=== PATIENT | female | born 1945 | race Caucasian/White ===

== ENCOUNTER → 2020-07-18 08:10 | Outpatient (BNVA) | payer OTHER, SELFPAY | PROVIDERS: PCP Internal Medicine; Referring Provider Internal Medicine; Visit Provider Obstetrics & Gynecology | DX: Z76.89 Persons encountering health services in other specified circumstances (principal) ==

== ENCOUNTER 2020-08-31 10:55 | Outpatient (REF) | payer OTHER, SELFPAY ==
[2020-08-31 13:24] LABS: Alanine Aminotransferase 21 U/L (0-31); Albumin Level 4.2 g/dL (3.5-5.0); Alkaline Phosphatase 65 U/L (39-117); Aspartate Amino Transferase 18 U/L (5-31); Bilirubin Direct 0.2 mg/dL (0.0-0.5); Bilirubin Total 0.6 mg/dL (0.0-1.0); Cholesterol 251 mg/dL; HDL Cholesterol 54 mg/dL; LDL Cholesterol Calculated 162 mg/dl; Total Protein 6.9 g/dL (6.5-8.0); Triglycerides 177 mg/dL
== END 2020-08-31 10:56 | disposition home or self-care (01) ==
LOC: HO.LAB 10:55
PROVIDERS: PCP Internal Medicine; Visit Provider Internal Medicine
DX: I10 Essential (primary) hypertension (principal); E78.00 Pure hypercholesterolemia, unspecified
CPT/HCPCS: 80061; 80076

== ENCOUNTER → 2020-09-01 10:42 | Outpatient (BNVA) | payer OTHER, SELFPAY | PROVIDERS: PCP Internal Medicine; Visit Provider Obstetrics & Gynecology | DX: Z46.6 Encounter for fitting and adjustment of urinary device (principal); N81.9 Female genital prolapse, unspecified | CPT/HCPCS: 51798 ==

== ENCOUNTER 2020-09-29 14:32 | Outpatient (REF) | payer OTHER, SELFPAY ==
--- NOTE | 2020-09-29 | MM_ITS ---
EXAMINATION: MM SCREENING DIGITAL BREAST TOMOSYNTHESIS, BILATERAL CLINICAL INFORMATION: Screening. Asymptomatic. The lifetime risk of breast cancer based on the Tyrer-Cuzick Model is 9%. COMPARISON: Mammography: 12/09/2018, 11/17/2017 TECHNIQUE: Digital breast tomosynthesis is performed in both the craniocaudal and mediolateral oblique views along with computer-aided detection (CAD). Synthesized 2D images are generated from the tomosynthesis. FINDINGS: The breasts are heterogeneously dense, which may obscure small masses (ACR BI-RADS breast composition Category c). Parenchymal pattern is similar to prior studies. No developing density or interval significant mass or architectural abnormality. Again, there is a biopsy clip marker mid 12:00 right breast and stable nodular asymmetry central right breast on CC view similar to 2018. There are bilateral vascular calcifications. No suspicious calcifications. No significant changes. MM/MM tomosynthesis screening BI IMPRESSION: No significant changes from prior studies. ASSESSMENT: BI-RADS 2: Benign RECOMMENDATION: Routine annual mammography screening. This patient's information was entered into a reminder system with a target due date for their next mammogram.
== END 2020-09-29 14:33 | disposition home or self-care (01) ==
LOC: HO.MAMMO 14:32
PROVIDERS: PCP Internal Medicine; Visit Provider Internal Medicine
DX: Z12.31 Encounter for screening mammogram for malignant neoplasm of breast (principal)
CPT/HCPCS: 77063; 77067

== ENCOUNTER → 2021-03-07 14:23 | Outpatient (BNVA) | payer OTHER, SELFPAY | PROVIDERS: PCP Internal Medicine; Visit Provider Obstetrics & Gynecology | DX: N81.9 Female genital prolapse, unspecified (principal) | CPT/HCPCS: 57160 ==

== ENCOUNTER 2021-09-11 14:06 | Outpatient (REF) | payer OTHER, SELFPAY ==
[2021-09-12 10:03] LABS: BV Int Neg Control Negative (Negative); BV Int Pos Control Positive (Positive)
== END 2021-09-11 14:07 | disposition home or self-care (01) ==
LOC: HO.LAB 14:06
PROVIDERS: PCP Internal Medicine; Visit Provider Advanced Practice Midwife
DX: Z01.411 Encounter for gynecological examination (general) (routine) with abnormal findings (principal); N89.8 Other specified noninflammatory disorders of vagina
CPT/HCPCS: 87480; 87510; 87660

== ENCOUNTER 2021-09-16 13:36 | Emergency (ER) | payer OTHER, SELFPAY ==
--- NOTE | ~2021-09-16 | CT_ITS ---
EXAMINATION: CT HEAD WITHOUT CONTRAST CT CERVICAL SPINE WITHOUT CONTRAST CT MAXILLOFACIAL WITHOUT CONTRAST CLINICAL INFORMATION: Fall with head and facial injury COMPARISON: Head and cervical spine CT 04/13/2019 TECHNIQUE: CT of the head, cervical spine, and maxillofacial structures was performed without intravenous contrast. Multiplanar reformats were rendered and reviewed. DOSE LOWERING TECHNIQUES: This CT examination was performed using dose optimization techniques as appropriate, variously including the following: - Automated exposure control - Adjustment of mA and/or kV according to patient size (this includes techniques or standardized protocols for targeted exams where dose is matched to indication/reason for exam; i.e. extremities or head) - Use of iterative reconstruction technique DLP: 1086 mGy-cm. FINDINGS: CT HEAD: No evidence of acute intracranial hemorrhage or extra-axial fluid collection. Periventricular white matter hypodensities, similar to the prior study and although nonspecific, this is most commonly due to chronic small vessel ischemic disease. No evidence of acute territorial infarction. No evidence of mass lesion, mass effect or midline shift. The ventricles are symmetric in configuration and normal in size. The basal cisterns are patent. Ventricles are slightly prominent in proportion to sulcal size in keeping with mild volume loss, also unchanged. The calvarium is intact. Limited views of the paranasal sinuses are unremarkable. Mastoid air cells are well aerated and middle ear cavities are clear. Limited views of the orbits are unremarkable. Small hematoma/inflammatory infiltration of the subcutaneous fat at the left forehead. CT MAXILLOFACIAL: No acute displaced facial fractures are identified. The ostiomeatal complexes are patent bilaterally. The paranasal sinuses are clear. Mastoid air cells are well aerated and middle ear cavities are clear. Temporomandibular joints are normally located. The bony orbits are intact. Small hematoma left forehead. No orbital traumatic injury. The maxillary teeth are not present. Mandibular teeth are seen, one of which demonstrates hypodensity, consistent with a dental caries. CT CERVICAL SPINE: Slight reversal of cervical lordosis likely due to immobilization collar versus muscular spasm. Multilevel degenerative disc disease, worst at the C4-C5, C5-C6 and C6-C7 levels. Anterior degenerative osteophytes and uncovertebral spurring are seen at multiple levels but worse at C4-C5 and C5-C6 and C6-C7. Facet joints are degenerated but anatomically aligned bilaterally. Spinous processes are intact and well aligned. The atlantodens interval is degenerated but normal otherwise. The craniocervical junction is intact. The dens process is intact. No prevertebral soft tissue swelling. The paravertebral muscles and fat planes are intact. Limited views of the thyroid gland demonstrate heterogeneous appearance but without focal nodules. Limited views of the lung apices unremarkable. No bulky cervical lymphadenopathy. CT/CT cervical spine wo con IMPRESSION: 1. No evidence of acute intracranial abnormality. 2. No evidence of acute displaced fracture involving the facial bones. Left for head small hematoma. 3. Degenerative changes of the cervical spine without CT evidence of acute fracture or subluxation.
--- NOTE | ~2021-09-16 | XR_ITS ---
EXAMINATION: XR HAND, LEFT CLINICAL INFORMATION: Finger injury COMPARISON: 05/20/2019 TECHNIQUE: PA, lateral, and oblique views of the left hand. FINDINGS: Severe osteoarthritis of the 1st CMC joint and severe arthritis of the distal interphalangeal joints particularly the 3rd and 4th DIP joints where central erosions suggest chronic erosive osteoarthritis. There is no acute osseous abnormality. XR/XR hand LT min 3V IMPRESSION: Severe arthritic changes, similar to 05/20/2019. No acute osseous abnormality.
[2021-09-16 13:46] VITALS: BP 190/79; PULSE 83; RESP 18; TEMP 36.2; O2SAT 97; BMI 26.7
--- NOTE | 2021-09-16 17:03 | ED_ITS ---
HPI - Fall General Chief Complaint: Extremity Injury, Upper Stated Complaint: finger inj Time Seen by Provider: 09/16/21 16:01 Source: patient Mode of arrival: ambulatory Limitations: no limitations History of Present Illness HPI Narrative: 76-year-old female presenting to the ED with complaints of left index finger pain/ swelling / ecchymosis after she had a mechanical fall at home prior to arrival where she was carrying some boxes tripped and fell injuring her left index finger. She reports she also hit her head /face enough to break her glasses although she denies loss of consciousness. She denies being on any blood thinners. She denies any headaches, dizziness, change in vision, neck pain/ stiffness, ear pain, chest pain or shortness of breath, abdominal pain or injury, back pain or injury or any other symptoms complaints or concerns. She reports this was a mechanical fall she did not have any symptoms prior to the fall. She denies any prolonged down time. She denies any symptoms after the fall other than the pain to her left index finger. She denies any other symptoms complaints or concerns or injuries at this time. 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 Fall witnessed: no Place fall occurred: home Loss of consciousness: none Prolonged down time: no Symptoms prior to fall: none Context: tripped/slipped Location of injury: head and face Location of injury - extremities: left: hand (left index finger ) Severity: moderate Quality: aching Associated symptoms (after fall): denies Related Data Home Medications Medication Instructions Recorded Confirmed cholecalciferol (vitamin D3) 25 25 mcg PO DAILY 07/18/20 02/28/21 mcg (1,000 unit) capsule multivit with 1 tab PO DAILY 07/18/20 02/28/21 [id number] 8 mg iron-400 mcg-300 mcg tablet (Centrum Silver Women) Previous Rx's Medication Instructions Recorded lisinopril 20 mg tablet 20 mg PO DAILY #90 tab 10/03/20 simvastatin 5 mg tablet 5 mg PO BEDTIME #90 tab 12/10/20 conjugated estrogens 0.625 mg/gram 0.3125 mg VAGINAL .COMPLEX #30 g 03/07/21 vaginal cream (Premarin) oxyquinoline 0.025 %-sodium lauryl 1 ea VAGINAL .COMPLEX #113.4 g 03/07/21 sulfate 0.01 % vaginal gel (Trimo-Faith Jelly) Allergies Allergy/AdvReac Type Severity Reaction Status Date / Time hornet venom [HORNETS] Allergy Severe SWELLING Verified 09/16/21 13:45 Novocain AdvReac Unknown palpitation Verified 09/16/21 13:45 s Review of Systems Review of Systems: Constitutional : No Weight loss, No Fever, No Chills, No Night Sweats, No Fatigue, No Malaise ENT/Mouth : No Hearing loss, No Ear Pain, No Nasal Congestion, No Sinus Pain, No Hoarseness, No sore throat, No Rhinorrhea, No Swallowing Difficulty Eyes: No Eye Pain, No Swelling, No Redness, No Foreign Body, No Discharge, No Vision Changes Cardiovascular : No Chest Pain, No SOB, No Dyspnea on Exertion, No Orthopnea, No Edema, No Palpitations Respiratory : No Cough, No Sputum, No Wheezing, No Smoke Exposure, No Dyspnea Gastrointestinal : No Nausea, No Vomiting, No Diarrhea, No Constipation, No abdominal Pain, No Hematochezia, No Melena Genitourinary : no irregular bleeding, No Dysuria, No Urinary Frequency, No Hematuria, No Urinary Incontinence, No Urgency, No Flank Pain, No Urinary Flow Changes, No Hesitancy Musculoskeletal : + joint pain/swelling, No Myalgias Skin : No Skin Lesions, No rash Neuro : + head injury, No Weakness, No Numbness, No Paresthesias, No Loss of Consciousness, No Dizziness, No Headache Psych : No Anxiety/Panic, No Depression, No SI/HI/AH/VH, No Social Issues, Heme/Lymph: No Bruising, No Bleeding,No Lymphadenopathy Endocrine : No Polyuria, No Polydipsia, No Temperature Intolerance Yes all other systems are reviewed and are negative [facility] Past Medical History Attestation statement: The following information was validated with the patient. Medical History Anxiety Hypercholesterolemia Hypertension Osteoarthritis Osteoporosis Prolapse of female pelvic organs Surgical History H/O total hip arthroplasty History of left hip replacement History of tonsillectomy Family History Family History Father Coronary disease Sister Heart attack Mother Breast cancer Maternal Aunt Bone cancer Paternal Grandfather Alcohol abuse Social History Social History Alcohol intake: current Alcohol intake frequency: holidays/special occasions only Advance Directives: No Advance Directives Information Provided: Yes Sexual orientation: Straight/Heterosexual Gender identity: Female Physical Exam Vital Signs: Vital Signs: Last Vital Signs Temp 97.1 F 09/16/21 13:46 Pulse 83 09/16/21 13:46 Resp 18 09/16/21 13:46 BP 190/79 H 09/16/21 13:46 Pulse Ox 97 09/16/21 13:46 BMI result Body Mass Index 26.7 vital signs have been reviewed as normal and appeared to be correct. Blood pressure 190/79. Heart rate normal. Respiration rate normal. Temperature normal. Oxygen saturation normal. Appearance: Alert. Oriented X3. No acute distress. Head: Normal external exam. Normocephalic. Atraumatic. No Arias signs noted. No raccoon eyes noted Eyes: PERRLA. EOMI. Conjunctiva and sclera normal. Eyelids normal. ENT: EAC normal. TM's Normal. No septal hematoma noted. No hemotympanum noted. Pharynx normal. Uvula midline. Moist mucous membranes. No trismus noted. No drooling noted. No muffled voice noted. Neck: Normal inspection. Neck supple. FROM. CVS: Normal heart rate and rhythm. Heart sound normal. Respiratory: No respiratory distress. Painless inspiration. Back: Full range of motion noted. No rashes/lesion/induration/fluctuance or signs of infection noted. Skin: Skin warm and dry. Normal skin color. Normal skin turgor. No rashes/lesions/lacerations noted. Extremities: Patient with tenderness palpation to the left hand index finger at the mid to distal aspect with moderate soft tissue swelling and ecchymosis noted. She does have limited range of motion with slight 1st to keep in extension although his ligamentous or tendon injury is noted. No tenderness palpation to the hand/wrist joint. Not consistent with wrist drop otherwise all other Extremities exhibit normal range of motion and nontender. Neuro: Oriented X 3. No motor deficit. No sensory deficit. Reflexes normal. Normal steady gait. No focal neuro deficits noted. Vascular: + radial pulses/+ 2 distal pedal pulses/+2 dorsalis pedis b/l. Normal cap refill. No cyanosis noted to upper extremity nails and lower extremity toes nails. Course Course Course Narrative: 16pm - 76-year-old female presenting to the ED with complaints of left index finger pain/ swelling / ecchymosis after she had a mechanical fall at home prior to arrival where she was carrying some boxes tripped and fell injuring her left index finger. She reports she also hit her head /face enough to break her glasses although she denies loss of consciousness. She denies being on any blood thinners. Plan: x-ray of left hand revealed severe arthritic changes similar to 05/20 2019 no acute processes are noted. Due to patient hitting her head hard enough to break her glasses I explained to the patient that I would like to get a CT scan of brain/cervical spine and facial bones and she is agreeable to this therefore will obtain CT scans of the above then re-evaluate. We will also place her in a finger splint. Reevaluation(s) Reevaluation #1: all imaging negative for any acute fractures or any other acute processes. Therefore print out the results and handed to the patient. I offered Motrin or Tylenol and patient declined she reports she has stuff at home. Therefore will DC home with instructions return if any new or worsening symptoms follow-up with PCP and hand surgeon if her symptoms persist for longer than 2-3 weeks. Patient understands agrees with this plan. She also declined a work note. Time: 17:47 MDM - Fall Medical Records Attestation: I reviewed the patient's medical records. Imaging Data Left hand x-ray: Attestation: I personally reviewed and interpreted this imaging study as follows: Radiologist's impression: FINDINGS: Severe osteoarthritis of the 1st CMC joint and severe arthritis of the distal interphalangeal joints particularly the 3rd and 4th DIP joints where central erosions suggest chronic erosive osteoarthritis. There is no acute osseous abnormality.? XR/XR hand LT min 3V IMPRESSION: Severe arthritic changes, similar to 05/20/2019. No acute osseous abnormality. CT scan of brain /cervical spine/facial bones without contrast: Attestation: I personally reviewed and interpreted this imaging study as follows: Radiologist's impression: FINDINGS: CT HEAD: No evidence of acute intracranial hemorrhage or extra-axial fluid collection. Periventricular white matter hypodensities, similar to the prior study and although nonspecific, this is most commonly due to chronic small vessel ischemic disease. No evidence of acute territorial infarction. No evidence of mass lesion, mass effect or midline shift. The ventricles are symmetric in configuration and normal in size. The basal cisterns are patent. Ventricles are slightly prominent in proportion to sulcal size in keeping with mild volume loss, also unchanged. The calvarium is intact. Limited views of the paranasal sinuses are unremarkable. Mastoid air cells are well aerated and middle ear cavities are clear. Limited views of the orbits are unremarkable. Small hematoma/inflammatory infiltration of the subcutaneous fat at the left forehead. CT MAXILLOFACIAL: No acute displaced facial fractures are identified. The ostiomeatal complexes are patent bilaterally. The paranasal sinuses are clear. Mastoid air cells are well aerated and middle ear cavities are clear. Temporomandibular joints are normally located. The bony orbits are intact. Small hematoma left forehead. No orbital traumatic injury. The maxillary teeth are not present. Mandibular teeth are seen, one of which demonstrates hypodensity, consistent with a dental caries. CT CERVICAL SPINE: Slight reversal of cervical lordosis likely due to immobilization collar versus muscular spasm. Multilevel degenerative disc disease, worst at the C4-C5, C5-C6 and C6-C7 levels. Anterior degenerative osteophytes and uncovertebral spurring are seen at multiple levels but worse at C4-C5 and C5-C6 and C6-C7. Facet joints are degenerated but anatomically aligned bilaterally. Spinous processes are intact and well aligned. The atlantodens interval is degenerated but normal otherwise. The craniocervical junction is intact. The dens process is intact. No prevertebral soft tissue swelling. The paravertebral muscles and fat planes are intact. Limited views of the thyroid gland demonstrate heterogeneous appearance but without focal nodules. Limited views of the lung apices unremarkable. No bulky cervical lymphadenopathy. CT/CT cervical spine wo con IMPRESSION: ? 1. No evidence of acute intracranial abnormality. 2. No evidence of acute displaced fracture involving the facial bones. Left for head small hematoma. 3. Degenerative changes of the cervical spine without CT evidence of acute fracture or subluxation. Discharge Plan Discharge Clinical Impression: Fall, Sprain of left index finger, Head injury, Facial injury Patient Disposition: Home, Self-Care Instructions: Fall Prevention for Older Adults (ED), Head Injury (ED), Finger Sprain (ED) Prescriptions: No Action lisinopril 20 mg tablet 20 mg PO DAILY Qty: 90 RF: 2 simvastatin 5 mg tablet 5 mg PO BEDTIME Qty: 90 RF: 2 Centrum Silver Women 8 mg iron-400 mcg-300 mcg tablet 1 tab PO DAILY RF: 0 cholecalciferol (vitamin D3) 25 mcg (1,000 unit) capsule 25 mcg PO DAILY RF: 0 Premarin 0.625 mg/gram cream 0.3125 mg vaginal .COMPLEX Qty: 30 RF: 11 Trimo-Faith Jelly 0.025-0.01 % gel 1 ea vaginal .COMPLEX Qty: 113.4 RF: 11 Referrals: Po,Kai Miller MD [Primary Care Provider] - 2 days Elidia Velasquez MD [Physician] - 1 week (if symptoms persist call to make a follow up appointment within 2-3 weeks ) Print Language: [place]
== END 2021-09-16 18:22 | disposition home or self-care (01) ==
PROVIDERS: Emergency Provider Emergency Medicine Emergency Medical Services; PCP Internal Medicine
DX: S63.611A Unspecified sprain of left index finger, initial encounter (principal); S09.90XA Unspecified injury of head, initial encounter; S09.93XA Unspecified injury of face, initial encounter; I10 Essential (primary) hypertension; W01.0XXA Fall on same level from slipping, tripping and stumbling without subsequent striking against object, initial encounter; Y93.9 Activity, unspecified; Y92.009 Unspecified place in unspecified non-institutional (private) residence as the place of occurrence of the external cause; Y99.9 Unspecified external cause status
CPT/HCPCS: 70450; 70486; 72125; 73130; 99283; 99284

== ENCOUNTER 2021-10-02 10:19 | Outpatient (REF) | payer OTHER, SELFPAY ==
--- NOTE | ~2021-10-02 | MM_ITS ---
EXAMINATION: BONE DENSITOMETRY CLINICAL INDICATION: Age-related osteoporosis without current pathological fracture. COMPARISON: Previous BD dated 08/20/2018 and baseline BD dated 11/14/2011. TECHNIQUE: Using a [employer] DXA System (software version: 13.1) manufactured by [employer], dual-energy x-ray absorptiometry was performed of the lumbar spine and right hip. The images are of good technical quality. Summary results are attached. FINDINGS: AP SPINE L1-L2 (excluding L3 and L4): The data of L1-L4 has been changed to exclude the L3 and L4 vertebral bodies, because degenerative changes at these levels may cause overestimation of lumbar spine density. Current: BMD 1.318 g/cm2, Z-score 2.9, T-score 1.3, normal, 4.4% increase from previous, 17.7% increase from baseline (<5% change is not significant). Prior: BMD 1.263 g/cm2. Baseline: BMD 1.120 g/cm2. RIGHT FEMUR, NECK: Current: BMD 0.688 g/cm2, Z-score -0.6, T-score -2.5, osteoporosis. Prior: BMD 0.652 g/cm2. Baseline: BMD 0.711 g/cm2. RIGHT FEMUR, TOTAL: Current: BMD 0.808 g/cm2, Z-score 0.1, T-score -1.6, osteopenia, 2.0% increase from previous, 4.3% decrease from baseline (<5% change is not significant). Prior: BMD 0.792 g/cm2. Baseline: BMD 0.844 g/cm2. IDENTIFIED RISK FACTORS: Menopause. HISTORY OF FRACTURE: None listed. MEDICATIONS: Calcium supplements or multivitamin, vitamin D. MM/XR DEXA axial skeleton IMPRESSION: 1. DIAGNOSIS: Osteoporosis based on the lowest T-score value of -2.5 in the femoral neck applying World Health Organization criteria. 2. 10-YEAR FRACTURE RISK PREDICTION, FRAX: According to the guidelines, FRAX calculation should only be performed on patients in the osteopenia bone density category. 3. Treatment Recommendations: NOF guidelines recommend consideration for treatment in postmenopausal women and men age 50 and older presenting with the following: -A hip or vertebral (clinical or morphometric) fracture. -T-score less than or equal to -2.5 at the femoral neck or spine after appropriate evaluation to exclude secondary causes. -Low bone mass at the hip or spine and a 10-year fracture probability by FRAX of greater than or equal to 3% for hip fracture or greater than or equal to 20% for major osteoporotic fracture based on the [place] adapted WHO algorithm. 4. Other Recommendations: All treatment decisions require clinical judgment and consideration of individual patient factors, including patient preferences, comorbidities, previous drug use, risk factors not captured in the FRAX model (e.g. frailty, falls, vitamin D deficiency, increased bone turnover, interval significant decline in bone density) and possible under or overestimation of fracture risk by FRAX. Additional medical evaluation for secondary cause of low bone mineral density may be appropriate. FUTURE SCAN RECOMMENDATION: People with diagnosed cases of osteoporosis or at high risk for fracture should have regular bone mineral density tests. For patients eligible for Medicare, routine testing is allowed once every 2 years. The testing frequency can be increased to one year for patients who have rapidly progressing disease, those who are receiving or discontinuing medical therapy to restore bone mass, or have additional risk factors.
--- NOTE | ~2021-10-02 | MM_ITS ---
EXAMINATION: MM SCREENING DIGITAL BREAST TOMOSYNTHESIS, BILATERAL CLINICAL INFORMATION: Screening. Asymptomatic. The lifetime risk of breast cancer based on the Tyrer-Cuzick Model is 5%. COMPARISON: Mammography: 09/29/2020, 12/09/2018, 11/17/2017 TECHNIQUE: Digital breast tomosynthesis is performed in both the craniocaudal and mediolateral oblique views along with computer-aided detection (CAD). Synthesized 2D images are generated from the tomosynthesis. FINDINGS: The breasts are heterogeneously dense, which may obscure small masses (ACR BI-RADS breast composition Category c). There are no significant masses, abnormal calcifications, or other abnormalities. Parenchymal pattern is similar to prior exams. There is biopsy clip marker mid 12:00 right breast. MM/MM tomosynthesis screening BI IMPRESSION: No mammographic evidence of malignancy. ASSESSMENT: BI-RADS 1: Negative RECOMMENDATION: Routine annual mammography screening. This patient's information was entered into a reminder system with a target due date for their next mammogram.
== END 2021-10-02 10:20 | disposition home or self-care (01) ==
LOC: HO.MAMMO 10:19
PROVIDERS: Visit Provider Internal Medicine
DX: Z12.31 Encounter for screening mammogram for malignant neoplasm of breast (principal); Z13.820 Encounter for screening for osteoporosis; M81.0 Age-related osteoporosis without current pathological fracture; Z78.0 Asymptomatic menopausal state; Z79.899 Other long term (current) drug therapy
CPT/HCPCS: 77063; 77067; 77080

== ENCOUNTER → 2021-10-10 14:15 | Outpatient (BNVA) | payer OTHER, SELFPAY | PROVIDERS: PCP Internal Medicine; Visit Provider Advanced Practice Midwife ==

== ENCOUNTER 2021-10-15 08:04 | Outpatient (REF) | payer OTHER, SELFPAY ==
--- NOTE | ~2021-10-15 | XR_ITS ---
EXAMINATION: XR HIP, LEFT CLINICAL INFORMATION: Hip pain COMPARISON: Radiographs left hip 08/27/2018, 03/19/2016 TECHNIQUE: AP and frog-lateral projections of the left hip are obtained. FINDINGS: There is left hip prosthesis. Hardware is intact. There is no fracture, dislocation, or interval osteolysis or destructive process. Spurring at the greater trochanter and some fine heterotopic bone between the acetabular roof and greater trochanter are stable. Again, there is some mild whiskering of the lateral iliac crest. The SI joint is unremarkable. There are mild degenerative changes again seen lumbar spine. XR/XR hip LT w PEL1V IMPRESSION: No acute bony abnormality. Hardware intact. No osteolysis.
== END 2021-10-15 08:05 | disposition home or self-care (01) ==
LOC: HO.HOSX 08:04
PROVIDERS: Visit Provider Physician Assistant
DX: M25.552 Pain in left hip (principal); S70.02XA Contusion of left hip, initial encounter; W01.0XXA Fall on same level from slipping, tripping and stumbling without subsequent striking against object, initial encounter; Y93.89 Activity, other specified; Y92.009 Unspecified place in unspecified non-institutional (private) residence as the place of occurrence of the external cause; Y99.8 Other external cause status; I10 Essential (primary) hypertension; E78.00 Pure hypercholesterolemia, unspecified; M81.0 Age-related osteoporosis without current pathological fracture; F41.9 Anxiety disorder, unspecified; Z88.4 Allergy status to anesthetic agent; Z91.030 Bee allergy status; Z96.642 Presence of left artificial hip joint
CPT/HCPCS: 73502

== ENCOUNTER → 2021-10-31 11:03 | Outpatient (BNVA) | payer OTHER, SELFPAY | PROVIDERS: PCP Internal Medicine; Visit Provider Orthopaedic Surgery ==

== ENCOUNTER → 2021-12-05 10:41 | Outpatient (BNVA) | payer OTHER, SELFPAY | PROVIDERS: PCP Internal Medicine; Visit Provider Advanced Practice Midwife ==

== ENCOUNTER 2022-01-02 11:13 | Outpatient (REF) | payer OTHER, SELFPAY ==
[2022-01-02 11:39] LABS: MANUAL DIFF FLAG NO
[2022-01-02 12:01] LABS: Basophils Percent Auto 0.5 % (0-2); Eosinophils Absolute Auto 0.2 X10*3/uL (0.0-0.4); Eosinophils Percent Auto 2.7 % (0-4); Hematocrit 41.7 % (37.0-47.0); Hemoglobin 13.6 g/dl (12.0-16.0); Imm Gran Abs Auto 0.02 X10*3/uL (0.00-0.03); Imm Gran Pct Auto 0.4 % (0.0-0.4); Lymphocytes Absolute Auto 1.4 X10*3/uL (1.2-4.9); Lymphocytes Percent Auto 24.9 % (20-40); Mean Corpuscular HGB Conc 32.6 g/dl (31.0-35.0); Mean Corpuscular Hemoglobin 30.7 pg (27.0-33.0); Mean Corpuscular Volume 94.1 fL (80.0-98.0); Mean Platelet Volume 10.3 fL (9.4-12.3); Monocytes Absolute Auto 0.5 X10*3/uL (0.1-1.2); Monocytes Percent Auto 8.5 % (2-11); Neutrophils Absolute Auto 3.6 x10*3/uL (2.0-8.3); Platelet Count 273 X10*3/uL (160-400); Red Blood Count 4.43 X10*6/uL (4.20-5.50); White Blood Count 5.7 X10*3/uL (4.8-10.8)
[2022-01-02 12:47] LABS: Alanine Aminotransferase 12 U/L (0-31); Albumin Level 4.2 g/dL (3.5-5.0); Alkaline Phosphatase 60 U/L (39-117); Anion Gap 12 (12-20); Aspartate Amino Transferase 12 U/L (5-31); Bilirubin Total 0.9 mg/dL (0.0-1.0); Blood Urea Nitrogen 21 mg/dL (9-16); Calcium 9.9 mg/dL (8.4-10.2); Carbon Dioxide 27 mmol/L (22-29); Chloride 106 mmol/L (96-108); Cholesterol 230 mg/dL; Estimated Glomerular Filt Rate > 60; Glucose Random 98 mg/dL (60-115); HDL Cholesterol 57 mg/dL; LDL Cholesterol Calculated 155 mg/dl; Potassium 4.7 mmol/L (3.3-5.1); Sodium 140 mmol/L (135-145); Triglycerides 91 mg/dL
[2022-01-02 13:10] LABS: Free T4 (Free Thyroxine) 0.92 ng/dL (0.71-1.85); Thyroid Stimulating Hormone 2.38 uIU/mL (0.32-4.0)
[2022-01-02 13:25] LABS: Folate 12.3 ng/mL (> or = 4.0); Vitamin B12 307 pg/mL (200-900)
[2022-01-03 14:24] LABS: Vitamin D 25-OH Total 34.7 ng/mL (>30)
== END 2022-01-02 11:14 | disposition home or self-care (01) ==
LOC: HO.LAB 11:13
PROVIDERS: PCP Internal Medicine; Visit Provider Internal Medicine
DX: E78.00 Pure hypercholesterolemia, unspecified (principal)
CPT/HCPCS: 36415; 80053; 80061; 82306; 82607; 82746; 84439; 84443; 85025

== ENCOUNTER → 2022-01-31 10:55 | Outpatient (BNVA) | payer OTHER, SELFPAY | PROVIDERS: Visit Provider Obstetrics & Gynecology | DX: Z13.89 Encounter for screening for other disorder (principal) ==

== ENCOUNTER → 2022-03-14 10:13 | Outpatient (BNVA) | payer OTHER, SELFPAY | PROVIDERS: Visit Provider Obstetrics & Gynecology | DX: Z13.89 Encounter for screening for other disorder (principal) ==

== ENCOUNTER 2022-03-19 10:47 | Outpatient (REF) | payer OTHER, MEDICARE, SELFPAY ==
[2022-03-19 12:12] LABS: Alanine Aminotransferase 17 U/L (0-31); Albumin Level 4.4 g/dL (3.5-5.0); Alkaline Phosphatase 59 U/L (39-117); Anion Gap 14 (12-20); Aspartate Amino Transferase 17 U/L (5-31); Bilirubin Total 0.7 mg/dL (0.0-1.0); Blood Urea Nitrogen 17 mg/dL (9-16); Carbon Dioxide 25 mmol/L (22-29); Chloride 107 mmol/L (96-108); Cholesterol 214 mg/dL; Estimated Glomerular Filt Rate > 60; Glucose Random 92 mg/dL (60-115); HDL Cholesterol 57 mg/dL; LDL Cholesterol Calculated 144 mg/dl; Potassium 4.8 mmol/L (3.3-5.1); Sodium 141 mmol/L (135-145); Triglycerides 66 mg/dL
== END 2022-03-19 10:48 | disposition home or self-care (01) ==
LOC: HO.LAB 10:47
PROVIDERS: PCP Internal Medicine; Visit Provider Internal Medicine
DX: E78.00 Pure hypercholesterolemia, unspecified (principal)
CPT/HCPCS: 36415; 80053; 80061

== ENCOUNTER 2024-11-09 07:03 | Outpatient (REF) | payer BC, SELFPAY ==
[2024-11-09 07:17] LABS: MANUAL DIFF FLAG NO
[2024-11-09 07:51] LABS: Basophils Absolute Auto 0.1 X10*3/uL (0.0-0.2); Basophils Percent Auto 0.8 % (0-2); Eosinophils Absolute Auto 0.2 X10*3/uL (0.0-0.4); Eosinophils Percent Auto 2.6 % (0-4); Hematocrit 41.3 % (37.0-47.0); Hemoglobin 13.8 g/dl (12.0-16.0); Imm Gran Abs Auto 0.01 X10*3/uL (0.00-0.03); Imm Gran Pct Auto 0.2 % (0.0-0.4); Lymphocytes Absolute Auto 2.8 X10*3/uL (1.2-4.9); Lymphocytes Percent Auto 41.6 % (20-40); Mean Corpuscular HGB Conc 33.4 g/dl (31.0-35.0); Mean Corpuscular Hemoglobin 31.2 pg (27.0-33.0); Mean Corpuscular Volume 93.2 fL (80.0-98.0); Mean Platelet Volume 10.8 fL (9.4-12.3); Monocytes Absolute Auto 0.6 X10*3/uL (0.1-1.2); Monocytes Percent Auto 8.9 % (2-11); Neutrophils Absolute Auto 3.1 x10*3/uL (2.0-8.3); Neutrophils Percent Auto 45.9 % (45-73); Platelet Count 258 X10*3/uL (160-400); Red Blood Count 4.43 X10*6/uL (4.20-5.50); Red Cell Distribution Width 13.7 % (11.0-16.0); White Blood Count 6.7 X10*3/uL (4.8-10.8)
[2024-11-09 08:27] LABS: Alanine Aminotransferase 28 U/L (0-31); Albumin Level 4.4 g/dL (3.5-5.0); Alkaline Phosphatase 69 U/L (39-117); Anion Gap 11 (12-20); Aspartate Amino Transferase 23 U/L (5-31); Bilirubin Total 0.8 mg/dL (0.0-1.0); Blood Urea Nitrogen 12 mg/dL (9-16); Calcium 9.2 mg/dL (8.4-10.2); Carbon Dioxide 29 mmol/L (22-29); Chloride 105 mmol/L (96-108); Cholesterol 245 mg/dL (<200); Estimated Glomerular Filt Rate > 60; Glucose Random 86 mg/dL (60-115); HDL Cholesterol 62 mg/dL (>40); LDL Cholesterol Calculated 165 mg/dL (<100); Potassium 3.8 mmol/L (3.3-5.1); Sodium 141 mmol/L (135-145); Total Protein 7.5 g/dL (6.5-8.0); Triglycerides 94 mg/dL (<150)
[2024-11-09 08:45] LABS: TSH reflex Free T4 4.53 uIU/mL (0.32-4.0); Vitamin D 25-OH Total 43.4 ng/mL (>30)
[2024-11-09 08:50] LABS: Folate 17.8 ng/mL (> or = 4.0); Vitamin B12 540 pg/mL (200-900)
[2024-11-09 11:29] LABS: Free T4 (Free Thyroxine) 1.14 ng/dL (0.71-1.85)
== END 2024-11-09 07:04 | disposition home or self-care (01) ==
LOC: HO.LAB 07:03
PROVIDERS: PCP Internal Medicine
DX: Z00.00 Encounter for general adult medical examination without abnormal findings (principal); E78.00 Pure hypercholesterolemia, unspecified
CPT/HCPCS: 36415; 80053; 80061; 82306; 82607; 82746; 84439; 84443; 85025

== ENCOUNTER 2024-12-22 09:44 | Outpatient (REF) | payer BC, SELFPAY ==
--- NOTE | ~2024-12-22 | MM_ITS ---
EXAMINATION: DXA BONE DENSITY AXIAL HISTORY: Estrogen deficiency TECHNIQUE: [employer] Dual energy absorptiometry (DEXA) of the lumbar spine, total right hip, and femoral neck was performed. COMPARISON: Comparison is made with the prior examination dated 10/02/2021. FINDINGS: The bone mineral density of the lumbar spine is 1.224 with a T-score of 0.5, and a Z-score of 2.5. This represents a BMD change of -7.1% compared to the prior exam. This is statistically significant. The bone mineral density of the right total hip is 0.736 with a T-score of -2.2, and a Z-score of 0.0. This represents a BMD change of -8.9% compared to the prior exam. This is statistically significant. The bone mineral density of the right femoral neck is 0.626 with a T-score of -2.9, and a Z-score of -0.6. This represents a BMD change of -7.6% compared to the prior exam. MM/XR DEXA axial skeleton IMPRESSION: Based on bone mineral density, and according to World Health Organization (WHO) criteria, the diagnosis is consistent with osteoporosis. All bone density values are in grams per centimeter squared (g/cm2). Statistically, 68% of repeat scans fall within 1 SD (+/- 0.010 g/cm2 for AP spine L1-L4) and 1 SD (+/- 0.012 g/cm2 for femur total) FRAX is a trademark of the [employer]'s [place] [facility] [employer] [facility], a World Health Organization (WHO) Collaborating Center. Electronically signed by: Robin Peterson MD 12/22/2024 11:51 AM EDT
== END 2024-12-22 09:45 | disposition home or self-care (01) ==
LOC: HO.MAMMO 09:44
DX: Z12.31 Encounter for screening mammogram for malignant neoplasm of breast (principal); Z13.820 Encounter for screening for osteoporosis; Z78.0 Asymptomatic menopausal state
CPT/HCPCS: 77063; 77067; 77080

== ENCOUNTER → 2024-12-22 10:00 | Outpatient (BNV) | payer BC, SELFPAY | PROVIDERS: Visit Provider Radiology Diagnostic Radiology | DX: E28.39 Other primary ovarian failure (principal) | CPT/HCPCS: 77080 ==

== ENCOUNTER 2025-01-10 07:55 | Outpatient (AMB) | payer OTHER, SELFPAY ==
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
[2025-01-10 08:08] VITALS: BP 158/72; PULSE 68; O2SAT 96; BMI 24.0
== END 2025-01-10 08:39 | disposition home or self-care (01) ==
LOC: HO.ENCR 07:56
PROVIDERS: Visit Provider Internal Medicine Endocrinology, Diabetes & Metabolism
DX: M81.0 Age-related osteoporosis without current pathological fracture (principal)
CPT/HCPCS: 99204

== ENCOUNTER 2025-02-03 07:58 | Outpatient (AMB) | payer BC, SELFPAY ==
[2025-02-03 08:02] VITALS: BP 118/58; PULSE 77; RESP 16; TEMP 36.3; O2SAT 98; BMI 23.7
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
== END 2025-02-03 08:48 | disposition home or self-care (01) ==
LOC: HO.HMCH 07:59
PROVIDERS: PCP Internal Medicine
DX: Z53.20 Procedure and treatment not carried out because of patient's decision for unspecified reasons (principal); F41.1 Generalized anxiety disorder; E66.3 Overweight; E78.00 Pure hypercholesterolemia, unspecified; I10 Essential (primary) hypertension; M81.0 Age-related osteoporosis without current pathological fracture; Z00.00 Encounter for general adult medical examination without abnormal findings; N81.9 Female genital prolapse, unspecified; R79.89 Other specified abnormal findings of blood chemistry; L98.9 Disorder of the skin and subcutaneous tissue, unspecified

== ENCOUNTER → 2025-02-03 07:58 | Outpatient (BNVA) | payer BC, SELFPAY | PROVIDERS: PCP Internal Medicine | DX: Z00.00 Encounter for general adult medical examination without abnormal findings (principal); F41.1 Generalized anxiety disorder; E66.3 Overweight; E78.00 Pure hypercholesterolemia, unspecified; I10 Essential (primary) hypertension; M81.0 Age-related osteoporosis without current pathological fracture; N81.9 Female genital prolapse, unspecified; R94.6 Abnormal results of thyroid function studies; L98.9 Disorder of the skin and subcutaneous tissue, unspecified | CPT/HCPCS: 96127 ==

== ENCOUNTER → 2025-02-17 08:53 | Outpatient (BNVA) | payer BC, SELFPAY | PROVIDERS: PCP Internal Medicine ==

== ENCOUNTER → 2025-03-03 08:38 | Outpatient (BNVA) | payer BC, SELFPAY | PROVIDERS: PCP Internal Medicine ==

== ENCOUNTER 2025-03-23 14:25 | Outpatient (AMB) | payer BC, SELFPAY ==
--- NOTE | 2025-03-23 14:37 | HO.NEPHOV_ITS ---
Vital Signs 03/23/25 14:43 Height 5 ft 2.25 in Weight 129 lb 6 oz BMI 23.5 BP 138/80 Blood Pressure Location Lt brachial Position Sitting Pulse 87 Pulse Source Pulse Oximeter Pulse Oximetry (%) 97 Oxygen Delivery Method Room Air Intake Visit Reasons: INP: Labile blood pressure/ Conf Window Systems Administrator Required: No Accompanied by: Self / Same As Patient Allergies hornet venom [HORNETS] Allergy (Severe, Verified 03/23/25 14:42) Swelling simvastatin Adverse Reaction (Mild, Verified 03/23/25 14:42) sleepy procaine [From Novocain] Adverse Reaction (Unknown, Verified 03/23/25 14:42) Palpitations HPI Comments Details: 80-year-old lady with past medical history of hypertension, hypercholesterolemia, anxiety is referred here for labile blood pressures [facility] Medical History Anxiety Osteoporosis Hypertension Prolapse of female pelvic organs Osteoarthritis Hypercholesterolemia Surgical History H/O total hip arthroplasty History of left hip replacement History of tonsillectomy Family History Father Coronary disease Sister Heart attack Mother Breast cancer Maternal Aunt Bone cancer Paternal Grandfather Alcohol abuse Other Substance use disorder Social History Housing: House Alcohol intake: current Alcohol intake frequency: holidays/special occasions only Patient Tobacco Use Status: Never used Tobacco e-Cigarette/Vaping Use: Never Used Second Hand Smoke Exposure: Yes service: No Current occupational status: employed 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 Sexual orientation: Straight/Heterosexual Gender identity: Female Cognitive needs: No Hearing needs: Yes (hearing aide) Vision needs: Yes (glasses) Review of Systems Const Details: Const Denies body aches, Denies chills, Denies excessive sweating and Denies fatigue Eyes Denies blurry vision and Denies change in vision ENT Denies bleeding gums and Denies change in voice Card Denies chest pain and Denies leg ulcers Resp Denies cough and Denies excessive phlegm production GI Denies abdominal pain and Denies bloating Denies hematuria, Denies urinary frequency and Denies difficulty voiding Musc Denies abnormal gait Neuro Denies Neuro-related abnormal movements, Denies abnormal gait and Denies behavioral changes Psych Denies behavioral changes and Denies change in appetite Endo Denies change in body appearance, Denies cold intolerance, Denies excessive sweating and Denies fatigue Physical Exam Vital Signs: Last Vital Signs Pulse 87 03/23/25 14:43 BP 138/80 03/23/25 14:43 Pulse Ox 97 03/23/25 14:43 Oxygen Delivery Method Room Air 03/23/25 14:43 BMI result Body Mass Index 23.5 General: Elderly pleasant lady, comfortable, sitting on the chair Nutritional Appearance: well nourished and normal weight Eyes: appearance normal, both eyes and all related structures; Alignment and Position: alignment normal and position normal Neck: No lymphadenopathy, no thyromegaly Resp: bilateral air entry equal, no added sounds present Cardio: Regular rate, regular rhythm; Heart sounds: S1 normal heart sound present and S2 normal heart sound present, no edema GI: soft, nontender, no guarding, no hepatosplenomegaly : bladder normal to inspection, bladder normal to palpation, no renal angle tenderness Skin: no rashes or lesions noted and elasticity normal Neuro: oriented to person, oriented to place, oriented to time and moves all extremities Results Reviewed Nephrology Results: Hgb 13.8 g/dl (12.0-16.0) 11/09/24 WBC 6.7 X10*3/uL (4.8-10.8) 11/09/24 Plt Count 258 X10*3/uL (160-400) 11/09/24 Sodium 141 mmol/L (135-145) 11/09/24 Potassium 3.8 mmol/L (3.3-5.1) 11/09/24 Chloride 105 mmol/L (96-108) 11/09/24 Carbon Dioxide 29 mmol/L (22-29) 11/09/24 BUN 12 mg/dL (9-16) 11/09/24 Creatinine 0.77 mg/dL (0.5-1.4) 11/09/24 Calcium 9.2 mg/dL (8.4-10.2) 11/09/24 Assessment & Plan Assessment & Plan (1) Hypertension: Code(s): I10 - Essential (primary) hypertension Category: Medical Qualifiers: Hypertension type: essential hypertension Qualified Code(s): I10 - Essential (primary) hypertension Plan: Currently her blood pressure is 138/80, on lisinopril 30 mg Renal functions stable, potassium 3.8 this time but has been normal all the time in the past TSH 4.53 She has a 10 year cardiovascular disease risk about 20% 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 will do a 24 hr blood pressure monitoring and will give her a call about the readings (2) Labile blood pressure: Code(s): R09.89 - Other specified symptoms and signs involving the circulatory and respiratory systems Category: Medical Plan: see above Plan see above Orders: Orders AMB 24 HR B/P Monitor PLACEMENT Today I10 - Essential (primary) hypertension, R09.89 - Other specified symptoms and signs involving the circulatory and respiratory systems Coding Level of Care Code New Pt Level 4 (61230) Diagnoses Essential hypertension I10 Hypertension type: essential hypertension Labile blood pressure R09.89
[2025-03-23 14:43] VITALS: BP 138/80; PULSE 87; O2SAT 97; BMI 23.5
== END 2025-03-23 15:31 | disposition home or self-care (01) ==
LOC: HO.HKA 14:25
PROVIDERS: PCP Internal Medicine; Visit Provider Internal Medicine Critical Care Medicine
DX: I10 Essential (primary) hypertension (principal); R09.89 Other specified symptoms and signs involving the circulatory and respiratory systems
CPT/HCPCS: 99204

== ENCOUNTER → 2025-03-23 14:25 | Outpatient (BNVA) | payer BC, SELFPAY | PROVIDERS: PCP Internal Medicine; Visit Provider Internal Medicine Critical Care Medicine ==

== ENCOUNTER → 2025-03-24 14:52 | Outpatient (BNVA) | payer BC, SELFPAY | PROVIDERS: PCP Internal Medicine; Visit Provider Internal Medicine Critical Care Medicine | DX: Z71.2 Person consulting for explanation of examination or test findings (principal) | CPT/HCPCS: 93786; 93788 ==

== ENCOUNTER 2025-04-25 14:08 | Outpatient (AMB) | payer BC, SELFPAY ==
[2025-04-25 14:13] VITALS: BP 130/68; PULSE 77; O2SAT 97; BMI 23.2
--- NOTE | 2025-04-25 14:13 | HO.NEPHOV_ITS ---
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 She had a 24 hour ambulatory blood pressure monitoring during which the blood pressure is mostly stayed around 130 systolic. She worked that night at [employer] and took the lisinopril 30 mg at 02:00 following which the blood pressure is slightly tipped but still remained above 110 mm Hg There was 2 little peaks 1 around noon time when she woke up from sleep.. [facility] Medical History Anxiety Osteoporosis Hypertension Prolapse of female pelvic organs Osteoarthritis Hypercholesterolemia Surgical History H/O total hip arthroplasty History of left hip replacement History of tonsillectomy Family History Father Coronary disease Sister Heart attack Mother Breast cancer Maternal Aunt Bone cancer Paternal Grandfather Alcohol abuse Other Substance use disorder Social History Housing: House Alcohol intake: current Alcohol intake frequency: holidays/special occasions only Patient Tobacco Use Status: Never used Tobacco e-Cigarette/Vaping Use: Never Used Second Hand Smoke Exposure: Yes service: No Current occupational status: employed 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 Sexual orientation: Straight/Heterosexual Gender identity: Female Cognitive needs: No Hearing needs: Yes (hearing aide) Vision needs: Yes (glasses) Review of Systems Const Details: Const Denies body aches, Denies chills, Denies excessive sweating and Denies fatigue Eyes Denies blurry vision and Denies change in vision ENT Denies bleeding gums and Denies change in voice Card Denies chest pain and Denies leg ulcers Resp Denies cough and Denies excessive phlegm production GI Denies abdominal pain and Denies bloating Denies hematuria, Denies urinary frequency and Denies difficulty voiding Musc Denies abnormal gait Neuro Denies Neuro-related abnormal movements, Denies abnormal gait and Denies behavioral changes Psych Denies behavioral changes and Denies change in appetite Endo Denies change in body appearance, Denies cold intolerance, Denies excessive sweating and Denies fatigue Physical Exam Vital Signs: Last Vital Signs Pulse 77 04/25/25 14:13 BP 130/68 04/25/25 14:13 Pulse Ox 97 04/25/25 14:13 Oxygen Delivery Method Room Air 04/25/25 14:13 BMI result Body Mass Index 23.2 General: Elderly lady very pleasant, comfortable, sitting on the chair Nutritional Appearance: okay nourished and underweight Eyes: appearance normal, both eyes and all related structures; Alignment and Position: alignment normal and position normal Neck: No lymphadenopathy, no thyromegaly Resp: bilateral air entry equal, no added sounds present Cardio: Regular rate, regular rhythm; Heart sounds: S1 normal heart sound present and S2 normal heart sound present, no edema GI: soft, nontender, no guarding, no hepatosplenomegaly : bladder normal to inspection, bladder normal to palpation, no renal angle tenderness Skin: no rashes or lesions noted and elasticity normal Neuro: oriented to person, oriented to place, oriented to time and moves all extremities Assessment & Plan Assessment & Plan (1) Anxiety: Code(s): F41.9 - Anxiety disorder, unspecified Category: Medical (2) Hypercholesterolemia: Code(s): E78.00 - Pure hypercholesterolemia, unspecified Category: Medical (3) Labile blood pressure: Code(s): R09.89 - Other specified symptoms and signs involving the circulatory and respiratory systems Category: Medical (4) Hypertension: Code(s): I10 - Essential (primary) hypertension Category: Medical Qualifiers: Hypertension type: essential hypertension Qualified Code(s): I10 - Essential (primary) hypertension Plan Currently her blood pressure is 130/68, on lisinopril 30 mg takes at 2 AM She had a 24 hour ambulatory blood pressure monitoring during which the blood pressure is mostly stayed around 130 systolic. She worked that night at [employer] and took the lisinopril 30 mg at 02:00 following which the blood pressure is slightly tipped but still remained above 110 mm Hg There was 2 little peaks 1 around noon time when she woke up from sleep.. 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 Coding Level of Care Code Est Pt Level 4 (57369) Diagnoses Anxiety F41.9 Hypercholesterolemia E78.00 Labile blood pressure R09.89 Essential hypertension I10 Hypertension type: essential hypertension
== END 2025-04-25 14:34 | disposition home or self-care (01) ==
LOC: HO.HKA 14:09
PROVIDERS: PCP Internal Medicine; Visit Provider Internal Medicine Critical Care Medicine
DX: F41.9 Anxiety disorder, unspecified (principal); E78.00 Pure hypercholesterolemia, unspecified; R09.89 Other specified symptoms and signs involving the circulatory and respiratory systems; I10 Essential (primary) hypertension
CPT/HCPCS: 99214

== ENCOUNTER 2025-04-28 08:03 | Outpatient (REF) | payer BC, SELFPAY ==
--- OUTSIDE RECORDS SUMMARY | 2025-04-27 23:59 | XMS_ITS | Continuity of Care Document ---
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 Name Role Phone Kai Fletcher MD Primary [facility] Phys[id number] Date[facility]s): [facility]/28/[facility] - 04/27/25 [facility] Jeremy Castros [facility] [address] [facility], [address] [place] [address]- Attending Physician: Lupe Frank MD Admitting Physician: Lupe Frank MD Referring Physician: Kai Fletcher MD Encounter Type: Pre-OutPatient One Time Allergies, Adverse Reactions, Alerts Substance Criticality Severity Reaction Reaction Severity Status Bee Stings Active Medications Centrum Silver By Mouth, Daily, 0 Refills, Maintenance, 03/27/22 3:45:00 PM EDT, Partial fill upon patient request if the prescription is for a schedule II opioid drug. Start Date: 03/27/22 Status: Ordered Repeat number: 1 estradiol 0.1 mg/g vaginal cream = 1 Gm, Vaginally, Daily at bedtime, take every night for two weeks then twice weekly, # 30 Gm, 11 Refills, Maintenance, 03/27/22 3:51:00 PM EDT, [facility]/pharmacy #[id number], Partial fill upon patient request if the prescription is for a schedule II opioid drug., 159.3, cm, 03/27/22 15:10:00 EDT, Height, 70.5, kg, 03/27/22 15:10:00 EDT, Dry Weight Start Date: 03/27/22 Status: Ordered Quantity: 30.0 Unit: g Repeat number: 12 Lisinopril By Mouth, Daily, 0 Refills, Maintenance, 03/27/22 3:44:00 PM EDT, Partial fill upon patient request if the prescription is for a schedule II opioid drug. Start Date: 03/27/22 Status: Ordered Repeat number: 1 PreserVision 0 Refills, Maintenance, 03/27/22 3:45:00 PM EDT, Partial fill upon patient request if the prescription is for a schedule II opioid drug. Start Date: 03/27/22 Status: Ordered Repeat number: 1 Simvastatin By Mouth, 0 Refills, Maintenance, 03/27/22 3:45:00 PM EDT, Partial fill upon patient request if the prescription is for a schedule II opioid drug. Start Date: 03/27/22 Status: Ordered Repeat number: 1 Vitamin D3 1000 intl units oral capsule 1 capsule = 25 mcg, By Mouth, Daily, # 100 capsule, 0 Refills, Maintenance, 03/27/22 3:46:00 PM EDT,Capsule, Partial fill upon patient request if the prescription is for a schedule II opioid drug. Start Date: 03/27/22 Status: Ordered Quantity: 100.0 Unit: capsule Repeat number: 1 Problem List Condition Confirmation Course Effective Dates Status Health St [facility] Informant Hyperlipidemia Confirmed Active Hypertension Confirmed Active Social History Social History Type Response Smoking Status Never (less than 100 in lifetime) entered on: 03/27/22 Sex Sex Representation Female (finding) Patient Care team information Care Team Personnel Name: Kai Fletcher MD Position: Reference Physician Member Role: PCP Address: [address] [place] [address] Telecom: Care Team Related Persons Name: PAIGE WADSWORTH Insurance Providers Guarantor name: MIRANDA [facility] Plan Information #: 1 Payer: [employer] PPO Payer Identifier: NA Member Number: [id number] Group Number: [id number] Subscriber Identifier: [id number] Relationship to Subscriber: self Coverage Type: NA Coverage Verification Date: NA Telecom: NA Address:
[2025-04-28 09:23] LABS: Cholesterol 241 mg/dL (<200); HDL Cholesterol 62 mg/dL (>40); Triglycerides 66 mg/dL (<150)
[2025-04-28 09:41] LABS: Free T4 (Free Thyroxine) 0.97 ng/dL (0.71-1.85)
[2025-05-03 17:57] LABS: Prot Elec - Albumin 4.1 g/dL (3.8-4.8); Prot Elec - Alpha1 0.3 g/dL (0.2-0.3); Prot Elec - Alpha2 0.7 g/dL (0.5-0.9); Prot Elec - Beta 1 0.4 g/dL (0.4-0.6); Prot Elec - Beta 2 0.4 g/dL (0.2-0.5); Prot Elec - Gamma 0.8 g/dL (0.8-1.7); Prot Elec - Total Protein 6.6 g/dL (6.1-8.1)
== END 2025-04-28 08:04 | disposition home or self-care (01) ==
LOC: HO.LAB 08:03
PROVIDERS: Absent Provider Internal Medicine Endocrinology, Diabetes & Metabolism
DX: Z00.00 Encounter for general adult medical examination without abnormal findings (principal); M81.0 Age-related osteoporosis without current pathological fracture; E78.00 Pure hypercholesterolemia, unspecified
CPT/HCPCS: 36415; 80061; 84100; 84165; 84439; 84443; 86335

== ENCOUNTER 2025-04-29 15:18 | Outpatient (REF) | payer BC, SELFPAY ==
[2025-04-29 15:47] LABS: Creatinine, mg/dL 121.05
[2025-04-29 16:50] LABS: Total Volume 24 Hour Urine 800 mL
[2025-05-01 18:54] LABS: Calcium/Creatinine Ratio 67 mg/g creat (30-275); Creatinine 24Hr Urine 0.95 g/24 h (0.50-2.15)
== END 2025-04-29 15:19 | disposition home or self-care (01) ==
LOC: HO.LNP 15:18
PROVIDERS: Visit Provider Internal Medicine Endocrinology, Diabetes & Metabolism
DX: M81.0 Age-related osteoporosis without current pathological fracture (principal)
CPT/HCPCS: 82340; 82570

== ENCOUNTER 2025-05-10 10:01 | Outpatient (AMB) | payer BC, SELFPAY ==
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
[2025-05-10 10:03] VITALS: BP 140/74; PULSE 79; O2SAT 97; BMI 23.4
== END 2025-05-10 10:39 | disposition home or self-care (01) ==
LOC: HO.ENCR 10:01
PROVIDERS: PCP Internal Medicine; Visit Provider Internal Medicine Endocrinology, Diabetes & Metabolism
DX: M81.0 Age-related osteoporosis without current pathological fracture (principal)
CPT/HCPCS: 99213

== ENCOUNTER 2025-05-11 08:25 | Outpatient (AMB) | payer BC, SELFPAY ==
[2025-05-11 08:37] VITALS: BP 144/52; PULSE 61; TEMP 36.6; O2SAT 97; BMI 23.2
--- NOTE | 2025-05-11 08:37 | MHC.PC.OV ---
Vital Signs 05/11/25 08:37 Height 5 ft 2.5 in Weight 129 lb BMI 23.2 BP 144/52 H Blood Pressure Location Lt brachial Position Sitting Pulse 61 Pulse Source Pulse Oximeter Temp 97.8 F Temp Source Temporal Artery Scan Pulse Oximetry (%) 97 Oxygen Delivery Method Room Air Intake Visit Reasons: f/u HLD Patient Carrier Required: No Accompanied by: Self / Same As Patient Allergies hornet venom (HORNETS) Allergy (Severe, Verified 05/11/25 08:49) Swelling simvastatin Adverse Reaction (Mild, Verified 05/11/25 08:49) sleepy procaine (From Novocain) Adverse Reaction (Unknown, Verified 05/11/25 08:49) Palpitations Medication List - Last Reconciled 05/11/25 by Apurva Alejandro PA-C alendronate 70 mg PO QWEEK lisinopril 30 mg PO DAILY 90 days mffgceld-fvl-djvn-FA-vit K-lut 8 mg iron-400 mcg-50 mcg (Centrum Silver Women) 1 tab PO DAILY vitamins A,C,S-xaiz-jrparf 2,148 mcg-113 mg-45 mg-17.4mg (PreserVision AREDS) 2 tabs PO BID Tobacco use date assessed: 05/11/25 Fall risk assessment: 1 Fall in past year Last assessed Fall Risk: 05/11/25 Dental Screening Dental Screen Date: 05/11/25 Did you have a dental visit in the last 12 months?: Yes Did you have a dental problem in the last 6 months where you did not have access to dental care?: No Was dental information given to patient?: Patient has dentist HPI f/u HLD HPI Details 80-year-old female with past medical history of anxiety, hypercholesterolemia, hypertension, generalized anxiety disorder, eggs while last seen 01/2025 coming in for follow up.?In review of the notes, patient was seen by Dr. Olsen for osteoporosis started on alendronate.?Seen by Nephrology 04/2025 blood pressure is stable plan to continue following kidney function. Presenting with hypercholesterolemia and hypertension. Hypercholesterolemia has been persistently high since 2018, despite dietary efforts to manage it. The patient reports consuming a diet rich in fruits and vegetables and denies consuming foods high in cholesterol. Family history includes significant cardiovascular disease, with the patient's father having of a heart attack at 55 and her mother from congestive heart failure. The patient has previously experienced grogginess with simvastatin, which affected her work schedule. Hypertension has been monitored with a blood pressure monitor, showing variable readings. The patient has seen a kidney specialist who is monitoring her blood pressure. The patient reports occasional lightheadedness, not associated with any specific triggers. [facility] Medical History Anxiety Osteoporosis Hypertension Prolapse of female pelvic organs Osteoarthritis Hypercholesterolemia Surgical History H/O total hip arthroplasty History of left hip replacement History of tonsillectomy Family History Father Coronary disease Sister Heart attack Mother Breast cancer Maternal Aunt Bone cancer Paternal Grandfather Alcohol abuse Other Substance use disorder Social History Housing: House Alcohol intake: current Alcohol intake frequency: holidays/special occasions only Patient Tobacco Use Status: Never used Tobacco e-Cigarette/Vaping Use: Never Used Second Hand Smoke Exposure: Yes service: No Current occupational status: employed 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 Sexual orientation: Straight/Heterosexual Gender identity: Female Cognitive needs: No Hearing needs: Yes (hearing aide) Vision needs: Yes (glasses) Questionnaire Thrive Questionnaire Date Thrive assessed: 05/11/25 I am a: Patient What is your living situation today?: I have a steady place to live Within the past 12 months, did the food you bought not last and you didn't have the money to get more?: Never true Within the past 12 months, did you worry whether your food would run out before you got money to buy more?: Never true Do you have trouble paying for medicines?: No Do you have trouble getting transportation to medical appointments?: No Do you have trouble paying your heating and electricity bill?: No Do you have trouble taking care of your child, family member or friend?: No Do you have trouble with day-to-day activities such as bathing, preparing meals, shopping, managing finances, etc.?: No Are you currently unemployed and looking for a job?: No Are you interested in more education?: No Please select the resources that you would like help with: None Currently or been in a relationship where the following occur: Controlled Financially THRIVE Score: 1 AUDIT C Alcohol Use Questionnaire (AUDIT-C) 3. How often do you have six or more drinks on one occasion?: Never Total Score: 0 TAMICA-7 AMB Questionnaire TAMICA-7 Date TAMICA - 7 assessed: 05/11/25 Source: Developed by Drs. Robin Noonan, Samantha Laureano, Jose Cruz Quinones and colleagues, with an educational tres from [employer]. Review of Systems Const Denies body aches, Denies chills, Denies fever(s) and Denies poor appetite Eyes Reports no additional complaints ENT Denies dizziness Card Denies chest pain, Denies syncope, Denies irregular heart rhythm, Denies lightheadedness and Denies dyspnea Resp Denies dyspnea GI Denies nausea and Denies vomiting Reports no additional complaints Musc Reports no additional complaints and Denies abnormal gait Skin/Breast Reports system reviewed and no additional complaints, except as documented Neuro Denies abnormal gait, Denies dizziness and Denies syncope Psych Reports no additional complaints Physical exam (Primary Care) Vital Signs: Last Vital Signs Temp 97.8 F 05/11/25 08:37 Pulse 61 05/11/25 08:37 BP 144/52 H 05/11/25 08:37 Pulse Ox 97 05/11/25 08:37 Oxygen Delivery Method Room Air 05/11/25 08:37 BMI result Body Mass Index 23.2 Tobacco/Smoking Status: Tobacco use Status Tobacco use date assessed 05/11/25 05/11/25 08:45 Patient Tobacco Use Status Never used Tobacco 05/11/25 08:45 e-Cigarette/Vaping Use Never Used 05/11/25 08:45 Thrive Assessment: Date of Thrive Assessment Date Thrive assessed 05/11/25 05/11/25 08:45 Currently or been in a relationship where the following occur: Controlled Financially Const General: cooperative, healthy appearing, comfortable and no acute distress Orientation/consciousness: patient oriented x3 HENMT Head: Yes normocephalic Ears: hearing grossly normal bilaterally General nose exam: Normal external nose present Eyes General: appearance normal, both eyes and all related structures Conjunctivae: conjunctivae normal Neck Neck: Yes full ROM and Yes no lymphadenopathy Resp Effort & Inspection: normal respiratory effort Auscultation: clear to auscultation bilaterally, no crackles, no rales, no rhonchi and no wheezes Cardio Rate: regular rate Rhythm: regular rhythm Skin General skin exam: no rashes or lesions noted Neuro General: patient oriented x3 Gait exam (Neuro): Normal gait present Extrem General: Yes normal to inspection, Yes full ROM and No edema Psych Affect: normal affect Attitude: cooperative Insight: Good insight present (Psych) Judgement: Good judgement present (Psych) Coding Level of Care Code Est Pt Level 3 (28384) Diagnoses Essential hypertension I10 Hypertension type: essential hypertension Labile blood pressure R09.89 Hypercholesterolemia E78.00 Osteoporosis M81.0 Overweight (BMI 25.0-29.9) E66.3 Elevated TSH R79.89 Lightheaded R42 Assessment & Plan Assessment & Plan (1) Hypertension: Code(s): I10 - Essential (primary) hypertension Category: Medical Qualifiers: Hypertension type: essential hypertension Qualified Code(s): I10 - Essential (primary) hypertension Plan: Continue on current blood pressure medication. Avoid salt intake and encourage healthy diet and regular exercise. Patient has not yet taken her blood pressure medication today. (2) Labile blood pressure: Code(s): R09.89 - Other specified symptoms and signs involving the circulatory and respiratory systems Category: Medical Plan: Patient to continue to follow with Nephrology and recently completed 24 hour blood pressure monitoring. (3) Hypercholesterolemia: Code(s): E78.00 - Pure hypercholesterolemia, unspecified Category: Medical Plan: Avoid foods that are high in cholesterol such as red meat, fried foods, eggs and baked goods. Triglyceride goal of less than 150 and LDL goal of less than 130. Discussed patient has elevated cholesterol despite dietary and lifestyle modification. Plan to start on atorvastatin 10 mg advised to take at bedtime to avoid groggy symptoms. Plan to repeat labs in 3 months. (4) Osteoporosis: Code(s): M81.0 - Age-related osteoporosis without current pathological fracture Category: Medical Plan: She was recently prescribed Alendronate but has not yet started on this medication. Continue to follow with endocrinology (5) Overweight (BMI 25.0-29.9): Code(s): E66.3 - Overweight Category: Medical Plan: Healthy diet and regular exercise is encouraged. (6) Elevated TSH: Code(s): R79.89 - Other specified abnormal findings of blood chemistry Category: Medical Plan: TSH levels have normalized at this time. Continue to monitor (7) Lightheaded: Code(s): R42 - Dizziness and giddiness Category: Medical Plan: Patient has episodes of occasional lightheadedness around once a month without any associated triggers or associated symptoms. Denies any chest pains, shortness of breath or loss of consciousness. Plan to obtain EKG and blood work for further evaluation. Patient to keep log of symptoms and bring this in the next visit. I did also review red flag symptoms and when to present for re-evaluation. Plan The plan for managing hypercholesterolemia includes initiating a low-dose cholesterol-lowering medication, different from simvastatin, to avoid previous side effects of grogginess. The patient will be monitored with repeat labs in three months to assess the effectiveness of the medication. For hypertension, the current approach is to continue monitoring blood pressure with the involvement of a kidney specialist, as the readings have been variable but not alarming. The patient is advised to maintain her current dietary habits, which include a diet rich in fruits and vegetables, and to continue avoiding high-cholesterol foods. This note was constructed using voice recognition software. While every effort has been made to ensure accuracy and thoroughbred horse farm manager, still areas may have been included sometimes these areas may affect the content or meeting of the given symptoms. Total time spent caring for the patient today was 20 minutes. This includes time spent before the visit reviewing the chart, time spent during the visit, and time spent after the visit and documentation. Patient was informed and verbally consented to the use of an ambient scribe for clinic note documentation during this visit. Orders: Orders Complete Blood Count Auto Diff Today I10 - Essential (primary) hypertension, Z00.00 - Encounter for general adult medical examination without abnormal findings Lipid Panel 3 Months E78.00 - Pure hypercholesterolemia, unspecified Comprehensive Met. Panel Today I10 - Essential (primary) hypertension, Z00.00 - Encounter for general adult medical examination without abnormal findings ECG 12 lead EKG Today I10 - Essential (primary) hypertension, R42 - Dizziness and giddiness Medications: New atorvastatin (Lipitor) 10 mg PO BEDTIME 90 tabs 0RF
== END 2025-05-11 09:11 | disposition home or self-care (01) ==
LOC: HO.HMCH 08:26
PROVIDERS: PCP Internal Medicine
DX: I10 Essential (primary) hypertension (principal); R09.89 Other specified symptoms and signs involving the circulatory and respiratory systems; E78.00 Pure hypercholesterolemia, unspecified; M81.0 Age-related osteoporosis without current pathological fracture; E66.3 Overweight; R79.89 Other specified abnormal findings of blood chemistry; R42 Dizziness and giddiness

== ENCOUNTER 2025-08-04 14:01 | Outpatient (REF) | payer SELFPAY ==
--- NOTE | 2025-08-09 07:25 | MHC.AU.HA3 ---
Hearing Instrument Follow-Up- Binaural Date of Visit: 08/09/25 Right Ear: Make, Model, Color, Serial Number: Jose Angel Monge [id number] SN: [id number] Metal Trimmer Repair Warranty: Metal Trimmer Loss and Damage Warranty: [facility] Service Plan: Battery Size: 312 Stuffer/Slim Tube: 1 slim tube Earmold/Dome/CShell/SlimTip:Acrylic canal Type of Wax Guard: Dispensed By: Date of Fitting: Left Ear: Make, Model, Color, Serial Number: Jose Angel Monge [id number] SN: [id number] Metal Trimmer Repair Warranty: Metal Trimmer Loss and Damage Warranty: [facility] Service Plan: Battery Size: 312 Stuffer/Slim Tube: 1 slim tube Earmold/Dome/CShell/SlimTip: Acrylic canal Type of Wax Guard: Dispensed By: Date of Fitting: Follow-Up Summary: Has not been here since 2016. Old paper chart and EMR unavailable for review. Left CALL/EM dropped off 08/04/2025 reporting . Assessed on 08/09/2025. Slim tube occluded with wax. Cleaned CALL and EM. Replaced slim tube. Vacuumed microphones. Ran through dehumidifier. Listening check demonstrated CALL amplifying clearly. 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 Recommendations: Hearing instrument follow-up or maintenance as needed. Please contact our clinic with any questions or concerns. Signature: Provider: Yashira Gonzalez, [facility]
== END 2025-08-04 14:02 | disposition home or self-care (01) ==
LOC: HO.HAP 14:01
PROVIDERS: Visit Provider Internal Medicine
DX: Z13.89 Encounter for screening for other disorder (principal)

== ENCOUNTER 2025-08-09 14:00 | Outpatient (REF) | payer SELFPAY | END 2025-08-09 14:01 | disposition home or self-care (01) | LOC: HO.HAP 14:00 | PROVIDERS: Visit Provider Internal Medicine | DX: Z46.1 Encounter for fitting and adjustment of hearing aid (principal); H90.3 Sensorineural hearing loss, bilateral | CPT/HCPCS: 92593 ==

== ENCOUNTER 2025-08-11 09:48 | Outpatient (AMB) | payer BC, SELFPAY ==
[2025-08-11 09:54] VITALS: BP 150/82; PULSE 64; TEMP 36.6; O2SAT 99; BMI 23.5
--- NOTE | 2025-08-11 09:54 | A.OFFPC_ITS ---
Vital Signs 08/11/25 09:54 08/11/25 10:28 Height 5 ft 2.5 in Weight 130 lb 6 oz BMI 23.5 BP 150/82 H 156/72 H Blood Pressure Location Lt brachial Lt brachial Position Sitting Sitting Pulse 64 Pulse Source Pulse Oximeter Temp 97.8 F Temp Source Temporal Artery Scan Pulse Oximetry (%) 99 Oxygen Delivery Method Room Air Intake Visit Reasons: F/U HLD Pediatric Care Coordinator Required: No Accompanied by: Self / Same As Patient Allergies hornet venom (HORNETS) Allergy (Severe, Verified 08/11/25 10:12) Swelling simvastatin Adverse Reaction (Mild, Verified 08/11/25 10:12) sleepy procaine (From Novocain) Adverse Reaction (Unknown, Verified 08/11/25 10:12) Palpitations Medication List - Last Reviewed 08/11/25 by Bridget Meng MA alendronate 70 mg PO QWEEK atorvastatin (Lipitor) 10 mg PO BEDTIME lisinopril 30 mg PO DAILY 90 days wcmlehmh-kzh-qhvk-FA-vit K-lut 8 mg iron-400 mcg-50 mcg (Centrum Silver Women) 1 tab PO DAILY vitamins A,C,C-uayj-anhstv 2,148 mcg-113 mg-45 mg-17.4mg (PreserVision AREDS) 2 tabs PO BID Tobacco use date assessed: 08/11/25 Fall risk assessment: 1 Fall in past year Last assessed Fall Risk: 08/11/25 Dental Screening Dental Screen Date: 08/11/25 Did you have a dental visit in the last 12 months?: Yes Did you have a dental problem in the last 6 months where you did not have access to dental care?: No Was dental information given to patient?: Patient has dentist HPI F/U HLD HPI Details 80-year-old female with past medical his tory of hypercholesterolemia, hypertension, generalized anxiety disorder, eczema last seen 04/2025 coming in for follow up. Her blood pressure was elevated at today's visit, which she attributes to just getting off a work shift and consuming a lot of coffee. An ambulatory blood pressure monitor done with her compliance testing analyst showed good results. The patient is due for fasting cholesterol blood work but has been non-adherent with her prescribed atorvastatin due to concerns about side effects such as diarrhea and , which she read about. The patient has not been taking her prescribed alendronate for osteoporosis and continues to follow up with an clinical registered nurse for this condition. She reports occasional lightheadedness, with the last episode occurring a few weeks ago, but she has not kept a log of these events. She has also not yet completed the workup for this concern. She believes the episodes may be linked to low blood sugars as it occurs typically after skipping meals. [facility] Medical History Anxiety Osteoporosis Hypertension Prolapse of female pelvic organs Osteoarthritis Hypercholesterolemia Surgical History H/O total hip arthroplasty History of left hip replacement History of tonsillectomy Family History Father Coronary disease Sister Heart attack Mother Breast cancer Maternal Aunt Bone cancer Paternal Grandfather Alcohol abuse Other Substance use disorder Social History Housing: House Alcohol intake: current Alcohol intake frequency: holidays/special occasions only Patient Tobacco Use Status: Never used Tobacco e-Cigarette/Vaping Use: Never Used Second Hand Smoke Exposure: Yes service: No Current occupational status: employed 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 1. Little interest or pleasure in doing things: not at all 2. Feeling down, depressed, or hopeless: not at all 3. Trouble falling or staying asleep, or sleeping too much: not at all 4. Feeling tired or having little energy: not at all 5. Poor appetite or overeating: not at all 6. Feeling bad about yourself - or that you are a failure or have let yourself or your family down: not at all 7. Trouble concentrating on things, such as reading the newspaper or watching television: not at all 8. Moving or speaking so slowly that other people could have noticed. Or the opposite - being so fidgety or restless that you have been moving around a lot more than usual: not at all 9. Thoughts that you would be better off or of hurting yourself in some way: not at all Total score: 0 Depression Screening Interpretation: Negative Depression Screening Done: Yes Source: Developed by Drs. Robin Noonan, Samantha Laureano, Jose Cruz Quinones and colleagues, with an educational tres from [employer]. Thrive Questionnaire Date Thrive assessed: 05/11/25 I am a: Patient What is your living situation today?: I have a steady place to live Within the past 12 months, did the food you bought not last and you didn't have the money to get more?: Never true Within the past 12 months, did you worry whether your food would run out before you got money to buy more?: Never true Do you have trouble paying for medicines?: No Do you have trouble getting transportation to medical appointments?: No Do you have trouble paying your heating and electricity bill?: No Do you have trouble taking care of your child, family member or friend?: No Do you have trouble with day-to-day activities such as bathing, preparing meals, shopping, managing finances, etc.?: No Are you currently unemployed and looking for a job?: No Are you interested in more education?: No Please select the resources that you would like help with: None Currently or been in a relationship where the following occur: Controlled Financially THRIVE Score: 1 AUDIT C Alcohol Use Questionnaire (AUDIT-C) 1. How often do you have a drink containing alcohol?: Never 3. How often do you have six or more drinks on one occasion?: Never Total Score: 0 TAMICA-7 AMB Questionnaire TAMICA-7 Date TAMICA - 7 assessed: 05/11/25 Feeling nervous, anxious, or on edge: 1 = Several days Not being able to stop or control worryin = Not at all Worrying too much about different things: 0 = Not at all Trouble relaxin = Not at all Being so restless that it is hard to sit still: 0 = Not at all Becoming easily annoyed or irritable: 0 = Not at all Feeling afraid as if something awful might happen: 0 = Not at all Total TAMICA-7 score (0-4 normal; 5-9 mild; 10-14 moderate; 15-21 severe): 1 Source: Developed by Drs. Robin Noonan, Samantha Laureano, Jose Cruz Quinoens and colleagues, with an educational tres from [employer]. Review of Systems Const Denies body aches, Denies chills, Denies fever(s), Denies headache(s) and Denies poor appetite Eyes Reports no additional complaints ENT Denies dizziness and Denies headache(s) Card Denies chest pain, Denies syncope, Denies edema, Denies irregular heart rhythm, Reports lightheadedness and Denies dyspnea Resp Denies cough and Denies dyspnea GI Denies abdominal pain, Reports constipation, Denies nausea and Denies vomiting Reports no additional complaints Musc Reports no additional complaints and Denies abnormal gait Skin/Breast Reports system reviewed and no additional complaints, except as documented Neuro Denies abnormal gait, Denies dizziness, Denies syncope and Denies headache(s) Psych Reports no additional complaints Physical exam (Primary Care) Vital Signs: Last Vital Signs Temp 97.8 F 08/11/25 09:54 Pulse 64 08/11/25 09:54 BP 156/72 H 08/11/25 10:28 Pulse Ox 99 08/11/25 09:54 Oxygen Delivery Method Room Air 08/11/25 09:54 BMI result Body Mass Index 23.5 Tobacco/Smoking Status: Tobacco use Status Tobacco use date assessed 08/11/25 08/11/25 09:57 Patient Tobacco Use Status Never used Tobacco 08/11/25 09:57 e-Cigarette/Vaping Use Never Used 08/11/25 09:57 PHQ-9: PHQ-9 Score PHQ-9: Total score 0 08/11/25 10:43 Depression Screening Interpretation: Negative Thrive Assessment: Date of Thrive Assessment Date Thrive assessed 05/11/25 08/11/25 09:57 Currently or been in a relationship where the following occur: Controlled Financially Const General: cooperative, healthy appearing, comfortable and no acute distress Orientation/consciousness: patient oriented x3 HENMT Head: Yes normocephalic Ears: hearing grossly normal bilaterally General nose exam: Normal external nose present Eyes General: appearance normal, both eyes and all related structures Conjunctivae: conjunctivae normal Neck Neck: Yes full ROM and Yes no lymphadenopathy Resp Effort & Inspection: normal respiratory effort Auscultation: clear to auscultation bilaterally, no crackles, no rales, no rhonchi and no wheezes Cardio Rate: regular rate Rhythm: regular rhythm Skin General skin exam: no rashes or lesions noted Neuro General: patient oriented x3 Gait exam (Neuro): Normal gait present Extrem General: Yes normal to inspection, Yes full ROM and No edema Psych Affect: normal affect Attitude: cooperative Insight: Good insight present (Psych) Judgement: Good judgement present (Psych) Coding Level of Care Code Est Pt Level 3 (00424) Diagnoses Essential hypertension I10 Hypertension type: essential hypertension Hypercholesterolemia E78.00 Osteoporosis M81.0 Overweight (BMI 25.0-29.9) E66.3 Lightheaded R42 Assessment & Plan Assessment & Plan (1) Hypertension: Code(s): I10 - Essential (primary) hypertension Category: Medical Qualifiers: Hypertension type: essential hypertension Qualified Code(s): I10 - Essential (primary) hypertension Plan: The patient's blood pressure was elevated in the office, although she notes it is typically better at home and that an ambulatory monitor with her kidney specialist showed good control. The elevation is attributed to recent caffeine intake and having just come from work. She will continue to monitor her blood pressure at home and follow up with her compliance testing analyst. (2) Hypercholesterolemia: Code(s): E78.00 - Pure hypercholesterolemia, unspecified Category: Medical Plan: Avoid foods that are high in cholesterol such as red meat, fried foods, eggs and baked goods. Triglyceride goal of less than 150 and LDL goal of less than 130. Discussed patient has elevated cholesterol despite dietary and lifestyle modification. She was started on Atorvastatin at her last visit but has not been taking the medication. Patient was reminded about blood work and discussed medi cation compliance as well. Discussed with patient the risk of elevated cholesterol including but not limited to heart attack and stroke. (3) Osteoporosis: Code(s): M81.0 - Age-related osteoporosis without current pathological fracture Category: Medical Plan: She was recently prescribed Alendronate but has not yet started on this medication. Continue to follow with endocrinology and has upcoming appointment. (4) Overweight (BMI 25.0-29.9): Code(s): E66.3 - Overweight Category: Medical Plan: Healthy diet and regular exercise is encouraged. (5) Lightheaded: Code(s): R42 - Dizziness and giddiness Category: Medical Plan: Patient has not completed the blood work, EKG or capsule log of her symptoms. Her most recent episode was over 2 weeks ago potentially look to hypoglycemia or dehydration. She will keep a log and complete blood work at her earliest convenience. Plan This note was constructed using voice recognition software. While every effort has been made to ensure accuracy and environmental program manager, still areas may have been included sometimes these areas may affect the content or meeting of the given symptoms. Total time spent caring for the patient today was 20 minutes. This includes time spent before the visit reviewing the chart, time spent during the visit, and time spent after the visit and documentation. Patient was informed and verbally consented to the use of an ambient scribe for clinic note documentation during this visit. Orders: Orders Complete Blood Count Auto Diff Today R42 - Dizziness and giddiness Comprehensive Met. Panel Today R42 - Dizziness and giddiness
[2025-08-11 10:28] VITALS: BP 156/72
== END 2025-08-11 10:34 | disposition home or self-care (01) ==
LOC: HO.HMCH 09:48
DX: I10 Essential (primary) hypertension (principal); E78.00 Pure hypercholesterolemia, unspecified; M81.0 Age-related osteoporosis without current pathological fracture; E66.3 Overweight; R42 Dizziness and giddiness

== ENCOUNTER 2025-08-15 10:53 | Outpatient (REF) | payer BC, SELFPAY ==
[2025-08-15 11:13] LABS: MANUAL DIFF FLAG NO
[2025-08-15 11:59] LABS: Hematocrit 42.7 % (37.0-47.0); Hemoglobin 13.7 g/dl (12.0-16.0); Imm Gran Abs Auto 0.01 X10*3/uL (0.00-0.03); Imm Gran Pct Auto 0.2 % (0.0-0.4); Lymphocytes Absolute Auto 1.5 X10*3/uL (1.2-4.9); Mean Corpuscular HGB Conc 32.1 g/dl (31.0-35.0); Mean Corpuscular Hemoglobin 30.9 pg (27.0-33.0); Mean Corpuscular Volume 96.4 fL (80.0-98.0); NRBC Abs Auto 0.000 X10*3/uL (0.0-0.012); NRBC Pct Auto 0.0 /100WBC (0.0-0.2); Platelet Count 269 X10*3/uL (160-400); Red Blood Count 4.43 X10*6/uL (4.20-5.50); White Blood Count 5.3 X10*3/uL (4.8-10.8)
[2025-08-15 12:29] LABS: Alanine Aminotransferase 16 U/L (0-31); Albumin Level 4.5 g/dL (3.5-5.0); Alkaline Phosphatase 65 U/L (39-117); Anion Gap 10 (12-20); Aspartate Amino Transferase 19 U/L (5-31); Blood Urea Nitrogen 17 mg/dL (9-16); Calcium 9.7 mg/dL (8.4-10.2); Carbon Dioxide 29 mmol/L (22-29); Chloride 110 mmol/L (96-108); Cholesterol 252 mg/dL (<200); Estimated Glomerular Filt Rate > 60; HDL Cholesterol 58 mg/dL (>40); Potassium 4.1 mmol/L (3.3-5.1); Sodium 145 mmol/L (135-145); Total Protein 7.2 g/dL (6.5-8.0); Triglycerides 108 mg/dL (<150)
== END 2025-08-15 10:54 | disposition home or self-care (01) ==
LOC: HO.LAB 10:53
DX: R42 Dizziness and giddiness (principal); E78.00 Pure hypercholesterolemia, unspecified
CPT/HCPCS: 36415; 80053; 80061; 85025

== ENCOUNTER 2025-09-16 09:35 | Outpatient (REF) | payer BC, SELFPAY | END 2025-09-16 09:36 | disposition home or self-care (01) | LOC: HO.LAB 09:35 | PROVIDERS: Visit Provider Internal Medicine Endocrinology, Diabetes & Metabolism | DX: M81.0 Age-related osteoporosis without current pathological fracture (principal) | CPT/HCPCS: 82523 ==

== ENCOUNTER 2025-09-27 08:29 | Outpatient (AMB) | payer MEDICARE, OTHER, SELFPAY ==
--- NOTE | 2025-09-27 08:41 | MHC.OFFVIS ---
Vital Signs 09/27/25 08:44 Height 5 ft 2.19 in Weight 131 lb 9.855 oz BMI 23.9 BP 140/68 H Blood Pressure Location Lt brachial Position Sitting Pulse 65 Pulse Source Pulse Oximeter Pulse Oximetry (%) 97 Oxygen Delivery Method Room Air Intake Visit Reasons: Osteoporosis Intake Note: Patient present today for Osteoporosis follow up. Life Skills Coordinator Required: No Accompanied by: Self / Same As Patient Allergies hornet venom (HORNETS) Allergy (Severe, Verified 09/27/25 08:45) Swelling simvastatin Adverse Reaction (Mild, Verified 09/27/25 08:45) sleepy procaine (From Novocain) Adverse Reaction (Unknown, Verified 09/27/25 08:45) Palpitations Medication List - Last Reconciled 09/27/25 by Robin Olsen MD alendronate 70 mg PO QWEEK atorvastatin (Lipitor) 10 mg PO BEDTIME lisinopril 30 mg PO DAILY 90 days qaldbnfq-yzd-xvaz-FA-vit K-lut 8 mg iron-400 mcg-50 mcg (Centrum Silver Women) 1 tab PO DAILY vitamins A,C,J-qgnm-qgyoqx 2,148 mcg-113 mg-45 mg-17.4mg (PreserVision AREDS) 2 tabs PO BID HPI Comments Details: History of Present Illness The patient is an 80-year-old female presenting for a follow-up visit regarding management of osteoporosis. She was previously prescribed alendronate but has not taken it due to concerns about side effects after speaking with a friend. She reports a recent fall on ice but did not sustain any fractures. Secondary workup was negative Medication History - Alendronate: Prescribed for osteoporosis, but the patient declined to take it due to concerns about side effects. [facility] Medical History Anxiety Osteoporosis Hypertension Prolapse of female pelvic organs Osteoarthritis Hypercholesterolemia Surgical History H/O total hip arthroplasty History of left hip replacement History of tonsillectomy Family History Father Coronary disease Sister Heart attack Mother Breast cancer Maternal Aunt Bone cancer Paternal Grandfather Alcohol abuse Other Substance use disorder Social History (Reviewed 12/16/25 @ 08:45 by SHANKAR Chawla Housing: House Alcohol intake: current Alcohol intake frequency: holidays/special occasions only Patient Tobacco Use Status: Never used Tobacco e-Cigarette/Vaping Use: Never Used Second Hand Smoke Exposure: Yes service: No Current occupational status: employed 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 - Neurological: Reports an episode of dizziness. Physical Exam Vital Signs: Last Vital Signs Pulse 65 09/27/25 08:44 BP 140/68 H 09/27/25 08:44 Pulse Ox 97 09/27/25 08:44 Oxygen Delivery Method Room Air 09/27/25 08:44 BMI result Body Mass Index 23.9 Assessment & Plan Assessment & Plan (1) Osteoporosis: Code(s): M81.0 - Age-related osteoporosis without current pathological fracture Category: Medical Plan: This is a 80 yo female with a hx of osteoporosis .Partial secondary w/u has been performed . Secondary workup was negative. The patient is currently on alendronate with suppressed NTX The plan is to continue the alendronate. She repeat DEXA will be done in 12/2026. Patient returned for follow up visit in 1 year's time Plan Assessment and Plan 1. Osteoporosis The patient has decided against taking the previously prescribed alendronate due to concerns about side effects after discussing it with a friend. She remains hesitant about initiating any pharmacotherapy. Alternative treatments were discussed, including a once-yearly infusion of Reclast and a vpyi-amhtc-mbm-months injection of Prolia. The patient was informed of the risks of forgoing treatment, including a potentially devastating fracture. The plan is for her to follow up with her primary care provider for a repeat bone density scan and to further discuss her options. She will return for a follow-up visit on an as-needed basis if she decides to start therapy or if she sustains a fracture. 2. Hypertension The patient reports her blood pressure is crazy. She was advised to monitor her blood pressure at home and to follow up with her primary care provider for management. The patient had an opportunity to ask questions regarding treatment plan. The patient Patient was informed and verbally consented to the use of an ambient scribe for clinic note documentation during this visit. Discussion Notes I discussed the patient's osteoporosis and her decision not to take the previously prescribed alendronate due to concerns about side effects. I explained the risk-benefit of treatment, including the significant risk of fracture without medication, which can be devastating at her age. I presented alternative treatment options, including a once-yearly infusion (Reclast) and an injection every six months (Prolia), noting that all medications have potential side effects. The patient stated she would consider these options. I recommended she follow up with her primary care provider to get a repeat bone density scan and continue the discussion. I advised her to return to my clinic on an as-needed basis if she decides to pursue treatment or if she sustains a fracture, which would significantly change her management plan. Regarding her blood pressure, I advised her to discuss her concerns with her primary care physician and monitor her readings at home. Patient Instructions - Continue to think about your options for treating your osteoporosis, which include a once-weekly pill, a once-a-year IV infusion, or an injection every six months. - Follow up with your primary care doctor to get a new bone density test and to discuss your bone health. - You do not need to schedule a return visit at this time; please call to make an appointment if you decide to start treatment. - If you have a fracture, contact our office, as this will change your treatment plan. - Discuss your blood pressure concerns with your primary care doctor and check your blood pressure at home. Take 15 carb carbohydrate grams to treat a low sugar (3-4 glucose tablets, half a glass of juice or 15 carbohydrate grams of soft candy such as gummie snacks). Recheck your sugar in 15 minutes and re-treat again with 15 carbohydrate grams if low or still with symptoms. Do not drive a car or operate machinery if you do not know what your blood sugar is, if it is low or in excess of 300. The patient was counseled to achieve a target A1C of 7% (154 avg). Fasting blood sugars should be 90-130 in the morning and less than 180 two hours after meals. Reviewed the relationship between poor diabetic control and the development of complications. Check your feet daily looking for any signs of infection, drainage, redness, ulceration and seek medical attention if this occurs. Break in shoes gradually and do not wear open-toed shoes or walk stocking footed or barefooted. Coding Level of Care Code Est Pt Level 3 (66286) Add On Problem Visit Only Diagnoses Osteoporosis M81.0
[2025-09-27 08:44] VITALS: BP 140/68; PULSE 65; O2SAT 97; BMI 23.9
== END 2025-09-27 09:13 | disposition home or self-care (01) ==
PROVIDERS: Visit Provider Internal Medicine Endocrinology, Diabetes & Metabolism
DX: M81.0 Age-related osteoporosis without current pathological fracture (principal)
CPT/HCPCS: 99213; G2211

== ENCOUNTER → 2025-09-27 08:29 | Outpatient (BNVA) | payer BC, SELFPAY | PROVIDERS: Visit Provider Internal Medicine Endocrinology, Diabetes & Metabolism | DX: M81.0 Age-related osteoporosis without current pathological fracture (principal) | CPT/HCPCS: 99212 ==